=== PATIENT | female | born 1990 | race Caucasian/White ===

== ENCOUNTER 2017-06-12 20:06 | Emergency (ER) | payer OTHER ==
[2017-06-12 20:17] VITALS: BP 121/80
--- NOTE | 2017-06-12 20:43 | DR.GENAD ---
HPI - PCP Primary Care Physician: NFD - Complaint/Symptoms Chief Complaint Doctors Comments: A boil in her groin areas x 1 week. She is more symptomatic on her left groin. There is no drainage. She denies fever or chills. Chief Complaint:: Risen on Staph on the inside of her(L) leg. Patient states that the left side is worse than the right side. Self Treatment fo Chief Complaint: Warm Compress - Nurses notes reviewed Nurses Notes Review: Yes - Source History Provided: Patient - Mode of Arrival Mode of Arrival: Ambulatory - Timing Onset of Chief Complaint: 06/05/17 PMH - PMH Past Medical History: No Past Medical History Comment: None Past Surgical History: Yes Surgical History: Past Surgical History Comment: 2017. 2013 - Family History History of Family Medical Conditions: No Family Medical History Comment: No Family History - Social History Does patient currently use any type of tobacco product: Yes Have you used tobacco products in the last 12 months: Yes Type of Tobacco Use: Cigarettes How many years tobacco product used: 12 Does any household member use tobacco: No Alcohol Use: None Do you use any recreational Drugs:: No Lives With: Family Lives Where: Home - infectious screening In the last 2 months have you had wt loss of >10#?: NO Have you had fever, night sweats or hemotysis?: No Have you traveled outside the country in the last 6 months?: No Isolation: Standard ROS - Review of Systems Constitutional: No Symptoms Reported Eyes: No Symptoms Reported ENTM: No Symptoms Reported Respiratoy: No Symptoms Reported Cardiovascular: No Symptoms Reported Gastrointestinal/Abdominal: No Symptoms Reported Genitourinary: No Symptoms Reported Neurological: No Symptoms Reported Musculoskeletal: No Symptoms Reported Integumentary: Other (1 boil each in left and right groin. Each has a dull erythematous appearance. The boil on her left groin is soft and tender, measures about 2.5 to 3 cm in diameter. ) Hematologic/Lymphatic: No Symptoms Reported Endocrine: No Symptoms Reported Psychiatric: No Symptoms Reported All Other Systems: Reviewed and Negative PE - Vital Signs Vitals: Temperature 98.1 F Pulse Rate 93 Respiratory Rate 20 Blood Pressure 121/80 O2 Sat by Pulse Oximetry 98 Procedures - Incision and Drainage Site: Lt. groin Blade Size: 11 I & D Procedure: betadine prep, sterile drapes applied, sterile dressing applied - Diagnosis Discharge Problem: Furuncle of groin - Discharge Plan Disposition: 01 HOME, SELF-CARE Condition: Stable - Follow ups/Referrals Follow ups/Referrals: NFD,None [Primary Care Provider] - 3 days - Instructions
[2017-06-12] MEDS ORDERED: CLEOCIN VIAL 600 MG ONE (20:46)
[2017-06-12] MEDS ORDERED: XYLOCAINE 1 % (PLAIN) ONE (20:46)
[2017-06-12] MEDS ORDERED: CLEOCIN VIAL 600 MG IM ONE (21:12)
== END 2017-06-12 21:21 | disposition home or self-care (01) ==
LOC: ER 20:20
PROC: 0Y963ZZ Drainage of Left Inguinal Region, Percutaneous Approach (ICD-10-PCS; principal; 2017-06-12)
DX: L02.224 Furuncle of groin (principal)
CPT/HCPCS: 10060; 87070; 87075; 87205; 96372; 99282; 99283; J2001; S0077